=== PATIENT | female | born 2000 | race American Indian/Alaskan Native ===

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

== ENCOUNTER 2021-05-09 14:49 | Emergency (ER) | payer MEDICAID ==
[2021-05-09] MEDS ORDERED: LORazepam 1 MG TAB PO PRN (15:42)
--- NOTE | 2021-05-09 15:48 | Emergency Department Report ---
HPI - General Chief Complaint: Psych Time Seen by Provider: 05/09/21 15:35 - HPI HPI: Room 16 the patient is a 20-year-old female present with a chief complaint of anxiety. When the patient is asked why she came to the emergency department she replies "because I worry." The patient states "I just want to make sure I was okay." Patient is very vague and does not give any specific symptoms. Patient denies suicidal or homicidal ideation. Patient denies auditory or visual hallucination ED Past Medical Hx - Past Medical History Previous Medical History?: Yes - Family History Family history: no significant - Social History Smoking Status: Current Some Day Smoker (Occasional) Substance Use Type: None (Denies illicit drug use) - Medications Home Medications: Home Medications Medication Instructions Recorded Confirmed Last Taken Type cephALEXin [Keflex] 500 mg PO TID #10 capsule 12/08/16 Unknown Rx ED Review of Systems ROS: Stated complaint: MH EVAL Other details as noted in HPI Constitutional: no symptoms reported Eyes: denies: eye pain ENT: denies: throat pain Respiratory: no symptoms reported Cardiovascular: denies: chest pain Endocrine: no symptoms reported Gastrointestinal: denies: abdominal pain Genitourinary: denies: dysuria Musculoskeletal: denies: back pain Neurological: denies: headache Psychiatric: anxiety. denies: auditory hallucinations, visual hallucinations, homicidal thoughts, suicidal thoughts Physical Exam - Physical Exam Physical Exam: GENERAL: The patient is well-developed well-nourished female walking in hallway not appearing to be in acute distress. [] HEENT: Normocephalic. Atraumatic. Extraocular motions are intact. Patient has moist mucous membranes. NECK: Supple. Trachea midline CHEST/LUNGS: Clear to auscultation. There is no respiratory distress noted. HEART/CARDIOVASCULAR: Regular. There is no tachycardia. There is no gallop rub or murmur. ABDOMEN: Abdomen is soft, nontender. Patient has normal bowel sounds. There is no abdominal distention. SKIN: There is no rash. There is no edema. There is no diaphoresis. NEURO: The patient is awake, alert, and oriented. The patient is cooperative. The patient has no focal neurologic deficits. The patient has normal speech and gait. GCS 15 MUSCULOSKELETAL: There is no evidence of acute injury. ED Medical Decision Making - Lab Data Result diagrams: 05/09/21 15:47 05/09/21 15:47 - Differential Diagnosis Anxiety, adjustment disorder Critical care attestation.: If time is entered above; I have spent that time in minutes in the direct care of this critically ill patient, excluding procedure time. ED Disposition Clinical Impression: Psychosis Disposition: [id number]/TX-65 PSY HOSP/PSY UNIT Is pt being admited?: No Does the pt Need Aspirin: No Condition: Stable Referrals: PRIMARY CARE, [Primary Care Provider] - 3-5 Days
[2021-05-09 16:10] LABS: Bacteria,Urine 1+ /HPF (Negative); Bilirubin,Urine SM (Negative); Blood,Urine MOD (Negative); Color,Urine Amber (Yellow); Hyaline Casts,Urine 2 /LPF; Mucus,Urine 3+ /HPF
[2021-05-09 16:11] LABS: Amphetamine Screen,Urine Negative; Benzodiazepines Screen,Urine Negative; Cocaine Screen,Urine Negative; Methadone Screen,Urine Negative; Opiate Screen,Urine Negative
[2021-05-09 16:14] LABS: Basophils # (Auto) 0.1 K/mm3 (0.0-0.1); Basophils % (Auto) 0.7 % (0.0-1.8); Eosinophils # (Auto) 0.1 K/mm3 (0.0-0.4); Eosinophils % (Auto) 0.9 % (0.0-4.3); Hematocrit 39.5 % (30.3-42.9); Hemoglobin 13.3 gm/dl (10.1-14.3); Lymphocytes % (Auto) 20.6 % (13.4-35.0); Mean Corpuscular HGB Conc 34 % (30-34); Mean Corpuscular Volume 88 fl (79-97); Monocytes # (Auto) 0.7 K/mm3 (0.0-0.8); Monocytes % (Auto) 6.9 % (0.0-7.3); Platelet Count 487 K/mm3 (140-440); Red Blood Count 4.51 M/mm3 (3.65-5.03); Red Cell Distribution Width 14.4 % (13.2-15.2)
[2021-05-09 16:24] LABS: Blood Urea Nitrogen 8 mg/dL (7-17); Calcium 10.1 mg/dL (8.4-10.2); Hemolysis Index 5
[2021-05-09 16:25] LABS: BUN/Creatinine Ratio 11
[2021-05-09 16:36] LABS: Cannabinoid Screen,Urine PRESUMPTIVE POSITIVE
[2021-05-09 16:39] LABS: Free T4 (Free Thyroxine) 1.23 ng/dL (0.76-1.46)
[2021-05-09 16:47] LABS: Ictotest,Urine Negative (Negative)
[2021-05-09] MEDS ORDERED: HALOPERIDOL LACTATE 5 MG/1 ML INJ IM PRN (17:12)
[2021-05-09] MEDS: diphenhydrAMINE 50 MG/ML VIAL IM PRN (17:20)
--- NOTE | 2021-05-10 00:34 | Event Note ---
Date: 05/10/21 Patient's urine is consistent with urinary tract infection. I have ordered Keflex 500 mg twice daily x5 days.
[2021-05-10] MEDS: diphenhydrAMINE 50 MG/ML VIAL IM PRN (00:46)
[2021-05-10] MEDS ORDERED: cephALEXin 500 MG CAP PO SCH (01:00)
[2021-05-10 08:43] VITALS: BP 121/79
== END 2021-05-10 08:43 ==
LOC: ED 14:49
DX: F29 Unspecified psychosis not due to a substance or known physiological condition (principal); F17.200 Nicotine dependence, unspecified, uncomplicated; Z79.899 Other long term (current) drug therapy
CPT/HCPCS: 36415; 80048; 80307; 81001; 84439; 84443; 85025; 87076; 87086; 87186; 96372; 99285; J1200; J1630; 80320; G0480

== ENCOUNTER 2021-07-12 18:09 | Emergency (ER) | payer MEDICAID ==
[2021-07-12] MEDS ORDERED: ZIPRASIDONE 20 MG CAP PO ONE (19:06)
--- NOTE | 2021-07-12 19:06 | Emergency Department Report ---
ED Psych HPI - General Stated Complaint: SCHIZAFFECTIVE NEED MEDS Time Seen by Provider: 07/12/21 19:02 - History of Present Illness Initial Comments: Patient presents requesting psychiatric medications. She has a history of schizoaffective disorder, bipolar disorder, and insomnia. She states that she has not been on medications in quite some time. When she had been discharge from the hospital last, she was taken to detention. She states that that was sometime in late April or May and she has not been on medication since then. She had previously been on Abilify, Risperdal, and trazodone. Those were not working for her. She states that she just wants to feel better. She is not suicidal or homicidal. She is not delusional. She states that she does not believe people are after her. She is not hearing voices or seeing things. Patient states that she does not want to get to the point she needs psychiatric admission and was hoping that we could provide some medications for her to stabilize her. She states that she was to follow-up as an outpatient and is willing to do so. - Related Data Previous Rx's Medication Instructions Recorded Last Taken Type cephALEXin [Keflex] 500 mg PO TID #10 capsule 12/08/16 Unknown Rx Ziprasidone [Geodon] 20 mg PO BID #60 capsule 07/12/21 Unknown Rx hydrOXYzine PAMOATE [Vistaril] 25 mg PO HS PRN #30 capsule 07/12/21 Unknown Rx Allergies Allergy/AdvReac Type Severity Reaction Status Date / Time No Known Allergies Allergy Verified 05/10/21 00:31 ED Review of Systems ROS: Stated complaint: SCHIZAFFECTIVE NEED MEDS Other details as noted in HPI Comment: All other systems reviewed and negative Constitutional: denies: fever Eyes: denies: eye pain ENT: denies: throat pain Respiratory: denies: cough Cardiovascular: denies: chest pain Endocrine: denies: unexplained weight loss Gastrointestinal: denies: abdominal pain Genitourinary: denies: dysuria Musculoskeletal: denies: back pain Skin: denies: rash Neurological: denies: headache Psychiatric: as per HPI Hematological/Lymphatic: denies: easy bruising ED Past Medical Hx - Past Medical History Hx Hypertension: No Hx Diabetes: No Hx Deep Vein Thrombosis: No Hx Renal Disease: No Hx Sickle Cell Disease: No Hx Seizures: No Hx Asthma: No Hx HIV: No - Family History Family history: hypertension - Social History Smoking Status: Current Some Day Smoker (Occasional) Substance Use Type: None (Denies illicit drug use) - Medications Home Medications: Home Medications Medication Instructions Recorded Confirmed Last Taken Type cephALEXin [Keflex] 500 mg PO TID #10 capsule 12/08/16 Unknown Rx Ziprasidone [Geodon] 20 mg PO BID #60 capsule 07/12/21 Unknown Rx hydrOXYzine PAMOATE [Vistaril] 25 mg PO HS PRN #30 capsule 07/12/21 Unknown Rx ED Physical Exam - General Limitations: No Limitations, Other (Pulse ox was noted and normal. She is not hypoxic.) General appearance: alert, in no apparent distress - Head Head exam: Present: atraumatic, normocephalic, normal inspection - Eye Eye exam: Present: normal appearance, EOMI. Absent: scleral icterus - ENT ENT exam: Present: normal exam, normal external ear exam - Neck Neck exam: Present: normal inspection. Absent: meningismus - Respiratory Respiratory exam: Present: normal lung sounds bilaterally. Absent: respiratory distress - Cardiovascular Cardiovascular Exam: Present: regular rate, normal rhythm - GI/Abdominal GI/Abdominal exam: Absent: tenderness - Extremities Exam Extremities exam: Present: normal capillary refill - Back Exam Back exam: Absent: CVA tenderness (R), CVA tenderness (L) - Neurological Exam Neurological exam: Present: alert, oriented X3, CN II-XII intact, normal gait. Absent: motor sensory deficit - Psychiatric Psychiatric exam: Present: normal affect, normal mood - Skin Skin exam: Present: warm, dry ED Course Vital Signs 07/12/21 18:54 Temperature 98.5 F Pulse Rate 70 Respiratory 16 Rate Blood Pressure 114/67 O2 Sat by Pulse 100 Oximetry - Reevaluation(s) Reevaluation #1: 07/12/21 19:11 Patient was seen in discharge. ED Medical Decision Making - Medical Decision Making Patient presents requesting medications. She is not suicidal. She is not homicidal. There is no evidence of acute psychosis. She is not responding to extraneous stimuli. She does not appear to be delusional. She has unremarkable vital signs and has no fever. I do not believe this represents any type of metabolic derangement. She is willing to contract for safety. We have provided resources for outpatient evaluation and follow-up. She has been provided medication to bridge the gap until she can get seen. She is comfortable with this plan and is willing to come back if she has problems. Critical Care Time: No Critical care attestation.: If time is entered above; I have spent that time in minutes in the direct care of this critically ill patient, excluding procedure time. ED Disposition Clinical Impression: Depression Qualifiers: Depression Type: unspecified Qualified Code(s): F32.9 - Major depressive disorder, single episode, unspecified Insomnia Qualifiers: Insomnia type: unspecified Qualified Code(s): G47.00 - Insomnia, unspecified Disposition: HOME / SELF CARE / HOMELESS Is pt being admited?: No Does the pt Need Aspirin: No Condition: Stable Instructions: Coping With Depression, Teen, Major Depressive Disorder, Adult, Insomnia Additional Instructions: Avoid caffeine. Drink plenty water. Return for problems. Follow-up with behavioral health and with counseling. Prescriptions: Ziprasidone [Geodon] 20 mg PO BID #60 capsule hydrOXYzine PAMOATE [Vistaril] 25 mg PO HS PRN #30 capsule PRN Reason: Sleep Referrals: PRIMARY CAREMD [Referring] - 3-5 Days JESSICA REED MD [Staff Physician] - 3-5 Days
[2021-07-12 19:40] VITALS: BP 126/82
== END 2021-07-12 20:36 | disposition home or self-care (01) ==
LOC: ED 18:09
DX: F32.9 Major depressive disorder, single episode, unspecified (principal); G47.00 Insomnia, unspecified; F17.200 Nicotine dependence, unspecified, uncomplicated
CPT/HCPCS: 99282

== ENCOUNTER 2021-08-20 17:30 | Emergency (ER) | payer MEDICAID ==
--- NOTE | 2021-08-20 19:01 | Emergency Department Report ---
HPI - General Chief Complaint: Urogenital-Female Time Seen by Provider: 08/20/21 18:03 - HPI HPI: MSE 5 The patient is a 21-year-old female present with chief complaint of medication refill and dysuria. Patient states she ran out of her Geodon and has been experiencing dysuria for 1 week. Patient denies hematuria but admits to white vaginal discharge for 1 week. Patient denies history of fever. Patient denies suicidal or homicidal ideation ED Past Medical Hx - Past Medical History Hx Psychiatric Treatment: Yes (schizo affective) - Surgical History Past Surgical History?: No - Family History Family history: no significant - Social History Smoking Status: Current Every Day Smoker (1/2 pack/day) Substance Use Type: None (Denies illicit drug use) - Medications Home Medications: Home Medications Medication Instructions Recorded Confirmed Last Taken Type cephALEXin [Keflex] 500 mg PO TID #10 capsule 12/08/16 Unknown Rx hydrOXYzine PAMOATE [Vistaril] 25 mg PO HS PRN #30 capsule 07/12/21 Unknown Rx Sulfamethoxazole/Trimethoprim 1 each PO BID #20 tablet 08/20/21 Unknown Rx [Bactrim DS TAB] Ziprasidone [Geodon] 20 mg PO BID #60 capsule 08/20/21 Unknown Rx ED Review of Systems ROS: Stated complaint: MENTAL HEALTH Other details as noted in HPI Constitutional: denies: fever Eyes: denies: eye pain ENT: denies: throat pain Respiratory: no symptoms reported Cardiovascular: denies: chest pain Endocrine: no symptoms reported Gastrointestinal: denies: abdominal pain Genitourinary: dysuria, discharge. denies: hematuria Musculoskeletal: denies: back pain Neurological: denies: headache Physical Exam - Physical Exam Vital Signs: Vital Signs 08/20/21 17:47 Temperature 97.5 F L Pulse Rate 87 Respiratory 14 Rate Blood Pressure 114/71 O2 Sat by Pulse 98 Oximetry Physical Exam: GENERAL: The patient is well-developed well-nourished female sitting in chair not appearing to be in acute distress. [] HEENT: Normocephalic. Atraumatic. Extraocular motions are intact. Patient has moist mucous membranes. NECK: Supple. Trachea midline CHEST/LUNGS: Clear to auscultation. There is no respiratory distress noted. HEART/CARDIOVASCULAR: Regular. There is no tachycardia. There is no gallop rub or murmur. ABDOMEN: Abdomen is soft, nontender. Patient has normal bowel sounds. There is no abdominal distention. SKIN: There is no rash. There is no edema. There is no diaphoresis. NEURO: The patient is awake, alert, and oriented. The patient is cooperative. The patient has no focal neurologic deficits. The patient has normal speech. GCS 15 MUSCULOSKELETAL: There is no evidence of acute injury. PELVIC: Scant white discharge present. ED Course Vital Signs 08/20/21 17:47 Temperature 97.5 F L Pulse Rate 87 Respiratory 14 Rate Blood Pressure 114/71 O2 Sat by Pulse 98 Oximetry ED Medical Decision Making - Lab Data Laboratory Tests 08/20/21 19:29 Urine Color Adelita Urine Turbidity Cloudy Urine pH 5.0 Ur Specific [place] 1.034 H Urine Protein 100 mg/dl Urine Glucose (UA) Neg Urine Ketones Neg Urine Blood Neg Urine Nitrite Neg Urine Bilirubin Sm Urine Ictotest Negative Urine Urobilinogen 4.0 Ur Leukocyte Esterase Mod Urine WBC (Auto) 101.0 H Urine RBC (Auto) 13.0 U Epithel Cells (Auto) 65.0 H Calcium Oxalate Crystal 2+ Urine Mucus 3+ Urine HCG, Qual Negative Wet prep-no trichomonas, clue cells or yeast - Differential Diagnosis UTI, bacterial vaginosis, urethritis, Critical care attestation.: If time is entered above; I have spent that time in minutes in the direct care of this critically ill patient, excluding procedure time. ED Disposition Clinical Impression: UTI (urinary tract infection), Dysuria Disposition: HOME / SELF CARE / HOMELESS Is pt being admited?: No Does the pt Need Aspirin: No Condition: Stable Instructions: Urinary Tract Infection, Adult, [id number] Additional Instructions: Return to the emergency department should you develop worsening symptoms, inab ility to tolerate food or liquids, high fever or any other concerns Prescriptions: Sulfamethoxazole/Trimethoprim [Bactrim DS TAB] 1 each PO BID #20 tablet Ziprasidone [Geodon] 20 mg PO BID #60 capsule Referrals: MARSHA SALEH MD [Primary Care Provider] - 3-5 Days [facility] [Outside] - 3-5 Days Time of Disposition: 22:57
[2021-08-20 20:03] LABS: Bilirubin,Urine SM (Negative); Blood,Urine NEG (Negative); Calcium Oxalate Crystals,Urine 2+; Color,Urine Amber (Yellow); Mucus,Urine 3+ /HPF
[2021-08-20 20:05] LABS: HCG Qualitative,Urine Negative (Negative)
[2021-08-20 20:09] LABS: Ictotest,Urine Negative (Negative)
[2021-08-20] MEDS ORDERED: LIDOCAINE-MPF (1%) 10 MG/1 ML VIAL 5 ML INFILTRATI ONE (20:58)
[2021-08-20] MEDS ORDERED: AZITHROMYCIN 1 GM ORAL PWDR PACKET PO ONE (20:59)
[2021-08-20 21:54] VITALS: BP 132/78
== END 2021-08-20 23:30 | disposition home or self-care (01) ==
LOC: ED 17:30
DX: N39.0 Urinary tract infection, site not specified (principal); R30.0 Dysuria; F17.200 Nicotine dependence, unspecified, uncomplicated
CPT/HCPCS: 81001; 81025; 87210; 87591; 96372; 99284; J0696

== ENCOUNTER 2022-03-27 08:32 | Emergency (ER) | payer MEDICAID ==
--- NOTE | 2022-03-27 08:52 | Emergency Department Report ---
ED General Adult HPI - General Chief complaint: Psych Stated complaint: what? Time Seen by Provider: 03/27/22 08:43 Source: patient, EMS ( EMS documentation not available at time of chart dictation ), RN notes reviewed, old records reviewed Limitations: Other (Psychosis) - History of Present Illness Initial comments: The patient was evaluated in the emergency department for symptoms described in the history of present illness. He/she was evaluated in the context of the global COVID-19 pandemic, which necessitated consideration that the patient might be at risk for infection with the virus that causes COVID-19. Institutional protocols and algorithms that pertain to the evaluation of patients at risk for COVID-19 are in a state of rapid change based on information released by regulatory bodies including the CDC and federal and state organizations. These policies and algorithms were followed during the patient's care in the emergency department. Please note that these policies, procedures and recommendations changed on a rapid basis. The patient is a 21-year-old female with a past medical history of psychiatric disease/schizoaffective disorder, who is reportedly brought to the hospital by emergency medical services with an EMS articulated complaint of change in mental status. The patient herself is awake and acutely psychotic. She does not answer open ended questions or close ended questions. She is not accompanied by friends or family at this time for collateral information or additional information. As per report from nursing team, friend called [phone] because the patient is reportedly experiencing a change in mental status. The patient's last known well time is not known. No further information is available. -: unknown - Related Data Previous Rx's Medication Instructions Recorded Last Taken Type cephALEXin [Keflex] 500 mg PO TID #10 capsule 12/08/16 Unknown Rx hydrOXYzine PAMOATE [Vistaril] 25 mg PO HS PRN #30 capsule 07/12/21 Unknown Rx Sulfamethoxazole/Trimethoprim 1 each PO BID #20 tablet 08/20/21 Unknown Rx [Bactrim DS TAB] Ziprasidone [Geodon] 20 mg PO BID #60 capsule 08/20/21 Unknown Rx Allergies Allergy/AdvReac Type Severity Reaction Status Date / Time No Known Allergies Allergy Verified 05/10/21 00:31 ED Review of Systems ROS: Stated complaint: AMS Other details as noted in HPI Comment: Unobtainable due to pts medical conditions ED Past Medical Hx - Past Medical History Hx Hypertension: No Hx Diabetes: No Hx Deep Vein Thrombosis: No Hx Renal Disease: No Hx Sickle Cell Disease: No Hx Seizures: No Hx Psychiatric Treatment: Yes (schizo affective) Hx Asthma: No Hx HIV: No - Social History Smoking Status: Current Every Day Smoker (1/2 pack/day) Substance Use Type: None (Denies illicit drug use) - Medications Home Medications: Home Medications Medication Instructions Recorded Confirmed Last Taken Type cephALEXin [Keflex] 500 mg PO TID #10 capsule 12/08/16 Unknown Rx hydrOXYzine PAMOATE [Vistaril] 25 mg PO HS PRN #30 capsule 07/12/21 Unknown Rx Sulfamethoxazole/Trimethoprim 1 each PO BID #20 tablet 08/20/21 Unknown Rx [Bactrim DS TAB] Ziprasidone [Geodon] 20 mg PO BID #60 capsule 08/20/21 Unknown Rx ED Physical Exam - General Limitations: Other (Psychosis and disorganized behavior) General appearance: anxious, obese - Head Head exam: Present: atraumatic, normocephalic - Eye Eye exam: Present: normal appearance, EOMI - ENT ENT exam: Present: normal exam, normal orophraynx, mucous membranes moist, normal external ear exam - Neck Neck exam: Present: normal inspection, full ROM. Absent: tenderness, meningismus - Respiratory Respiratory exam: Present: normal lung sounds bilaterally. Absent: respiratory distress, wheezes, rales, rhonchi, stridor, decreased breath sounds - Cardiovascular Cardiovascular Exam: Present: regular rate, normal rhythm, normal heart sounds. Absent: bradycardia, tachycardia, irregular rhythm, systolic murmur, diastolic murmur, rubs, gallop - GI/Abdominal GI/Abdominal exam: Present: soft. Absent: distended, tenderness, guarding, rebound, rigid, pulsatile mass - Extremities Exam Extremities exam: Present: normal inspection, full ROM, other (2+ pulses noted in the bilateral upper and lower extremities. There is no palpable cord. negative Homans sign. Muscular compartments are soft. The pelvis is stable.). Absent: pedal edema, calf tenderness - Back Exam Back exam: Present: normal inspection. Absent: tenderness, CVA tenderness (R), CVA tenderness (L), paraspinal tenderness, vertebral tenderness - Neurological Exam Neurological exam: Present: altered, other (There is no facial droop. The tongue is midline. 5 out of 5 strength in 4 extremities.) - Psychiatric Psychiatric exam: Present: agitated, anxious - Skin Skin exam: Present: warm, dry, intact, normal color. Absent: rash ED Course Vital Signs 03/27/22 08:35 Temperature 98 F Pulse Rate 88 Blood Pressure 140/90 [Left] O2 Sat by Pulse 99 Oximetry - Reevaluation(s) Reevaluation #1: 03/27/22 09:46 Differential diagnosis, include not limited to: Psychosis, electrolyte derangement, thyroid derangement, encounter for medical screening examination, medical screening for psychiatric placement Assessment and plan: 21-year-old female, likely presenting with acute decompensated psychosis. Patient placed on 1013. Appropriate laboratory studies ordered. Obtain noncontrast CT scan of the brain. Patient uncooperative, but does not exhibit decision-making capacity. She will therefore be medicated with haloperidol and Ativan, to allow for acquisition of time sensitive diagnostics. Psychiatric consultation is requested. 03/27/22 11:42 Laboratory studies are essentially unremarkable for emergent findings. Urinalysis, drug screen and COVID swab pending. CT scan of the brain appears to be negative for acute findings. The emergency room follow along as the patient provides urinalysis, drug screen and COVID. These diagnostics are not nece ssary to exclude emergent medical conditions, and at this point in time, this patient does not appear to have an immediate medical contraindication to psychiatric admission, evaluation, consultation and placement. Awaiting psychiatric recommendations. ED Medical Decision Making - Lab Data Result diagrams: 03/27/22 10:28 03/27/22 10:28 Vital Signs 03/27/22 08:35 Temperature 98 F Pulse Rate 88 Blood Pressure 140/90 [Left] O2 Sat by Pulse 99 Oximetry Lab Results 03/27/22 03/27/22 03/27/22 Range/Units 10:28 10:28 10:28 WBC 9.9 (4.5-11.0) K/mm3 RBC 5.18 H (3.65-5.03) M/mm3 Hgb 14.2 (10.1-14.3) gm/dl Hct 43.6 H (30.3-42.9) % MCV 84 (79-97) fl MCH 27 L (28-32) pg MCHC 33 (30-34) % RDW 14.4 (13.2-15.2) % Plt Count 611 H (140-440) K/mm3 Sodium (137-145) mmol/L Potassium (3.6-5.0) mmol/L Chloride (98-107) mmol/L Carbon Dioxide (22-30) mmol/L Anion Gap mmol/L BUN (7-17) mg/dL Creatinine (0.6-1.2) mg/dL Estimated GFR ml/min BUN/Creatinine Ratio % Glucose (65-100) mg/dL Calcium (8.4-10.2) mg/dL Total Bilirubin (0.1-1.2) mg/dL AST (5-40) units/L ALT (7-56) units/L Alkaline Phosphatase (35-129) units/L Total Protein (6.3-8.2) g/dL Albumin (3.9-5) g/dL Albumin/Globulin Ratio % TSH (0.270-4.200) mlU/mL HCG, Qual (Negative) Salicylates < 0.3 L (2.8-20.0) mg/dL Acetaminophen 5.0 L (10.0-30.0) ug/mL Valproic Acid < 2.8 L (50-100) ug/mL Bern 0.1 (0.0-1.2) mmol/L Plasma/Serum Alcohol (0-0.07) % 03/27/22 03/27/22 03/27/22 Range/Units 10:28 10:28 10:28 WBC (4.5-11.0) K/mm3 RBC (3.65-5.03) M/mm3 Hgb (10.1-14.3) gm/dl Hct (30.3-42.9) % MCV (79-97) fl MCH (28-32) pg MCHC (30-34) % RDW (13.2-15.2) % Plt Count (140-440) K/mm3 Sodium 137 (137-145) mmol/L Potassium 3.6 (3.6-5.0) mmol/L Chloride 101.8 (98-107) mmol/L Carbon Dioxide 21 L (22-30) mmol/L Anion Gap 18 mmol/L BUN 15 (7-17) mg/dL Creatinine 1.2 (0.6-1.2) mg/dL Estimated GFR > 60 ml/min BUN/Creatinine Ratio 13 % Glucose 96 (65-100) mg/dL Calcium 9.9 (8.4-10.2) mg/dL Total Bilirubin 0.30 (0.1-1.2) mg/dL AST 16 (5-40) units/L ALT 15 (7-56) units/L Alkaline Phosphatase 79 (35-129) units/L Total Protein 8.9 H (6.3-8.2) g/dL Albumin 5.0 (3.9-5) g/dL Albumin/Globulin Ratio 1.3 % TSH 0.627 (0.270-4.200) mlU/mL HCG, Qual (Negative) Salicylates (2.8-20.0) mg/dL Acetaminophen (10.0-30.0) ug/mL Valproic Acid (50-100) ug/mL Bern (0.0-1.2) mmol/L Plasma/Serum Alcohol < 0.01 (0-0.07) % 03/27/22 Range/Units 10:28 WBC (4.5-11.0) K/mm3 RBC (3.65-5.03) M/mm3 Hgb (10.1-14.3) gm/dl Hct (30.3-42.9) % MCV (79-97) fl MCH (28-32) pg MCHC (30-34) % RDW (13.2-15.2) % Plt Count (140-440) K/mm3 Sodium (137-145) mmol/L Potassium (3.6-5.0) mmol/L Chloride (98-107) mmol/L Carbon Dioxide (22-30) mmol/L Anion Gap mmol/L BUN (7-17) mg/dL Creatinine (0.6-1.2) mg/dL Estimated GFR ml/min BUN/Creatinine Ratio % Glucose (65-100) mg/dL Calcium (8.4-10.2) mg/dL Total Bilirubin (0.1-1.2) mg/dL AST (5-40) units/L ALT (7-56) units/L Alkaline Phosphatase (35-129) units/L Total Protein (6.3-8.2) g/dL Albumin (3.9-5) g/dL Albumin/Globulin Ratio % TSH (0.270-4.200) mlU/mL HCG, Qual Negative (Negative) Salicylates (2.8-20.0) mg/dL Acetaminophen (10.0-30.0) ug/mL Valproic Acid (50-100) ug/mL Bern (0.0-1.2) mmol/L Plasma/Serum Alcohol (0-0.07) % - Radiology Data Radiology results: report reviewed, image reviewed CT HEAD WITHOUT CONTRAST INDICATION / CLINICAL INFORMATION: change in mental status psychosis. TECHNIQUE: All CT scans at this location are performed using CT dose reduction for ALARA by means of automated exposure control. COMPARISON: None available. FINDINGS: HEMORRHAGE: None. EXTRA-AXIAL SPACES: Normal in size and morphology for the patient's age. VENTRICULAR SYSTEM: Normal in size and morphology for the patient's age. CEREBRAL PARENCHYMA: No significant abnormality. No acute territorial infarct. MIDLINE SHIFT / HERNIATION: None. CEREBELLUM / BRAINSTEM: No significant abnormality. ORBITS: Normal as visualized SOFT TISSUES: No significant abnormality. SKULL: No significant abnormality. PARANASAL SINUSES / MASTOID AIR CELLS: Normal as visualized ADDITIONAL FINDINGS: None. IMPRESSION: 1. No acute intracranial abnormality. Signer Name: Alexei Brandon DO Signed: 03/27/2022 10:38 AM Workstation Name: [id number] Critical care attestation.: If time is entered above; I have spent that time in minutes in the direct care of this critically ill patient, excluding procedure time. ED Disposition Clinical Impression: Psychosis, Medical clearance for psychiatric admission Disposition: [address] [place] [address] Is pt being admited?: No Does the pt Need Aspirin: No Condition: Good
[2022-03-27] MEDS: HALOPERIDOL LACTATE 5 MG/1 ML INJ IM PRN (09:49)
[2022-03-27] MEDS: LORazepam 2 MG/ML VIAL IM PRN (09:49)
[2022-03-27 11:10] LABS: Hematocrit 43.6 % (30.3-42.9); Hemoglobin 14.2 gm/dl (10.1-14.3); Mean Corpuscular HGB Conc 33 % (30-34); Mean Corpuscular Volume 84 fl (79-97); Platelet Count 611 K/mm3 (140-440); Red Blood Count 5.18 M/mm3 (3.65-5.03); Red Cell Distribution Width 14.4 % (13.2-15.2)
[2022-03-27 11:24] LABS: Alanine Aminotransferase 15 units/L (7-56); BUN/Creatinine Ratio 13; Blood Urea Nitrogen 15 mg/dL (7-17); Calcium 9.9 mg/dL (8.4-10.2); Hemolysis Index 3
--- NOTE | 2022-03-27 11:43 | Cat Scan Report ---
CT HEAD WITHOUT CONTRAST INDICATION / CLINICAL INFORMATION: change in mental status psychosis. TECHNIQUE: All CT scans at this location are performed using CT dose reduction for ALARA by means of automated exposure control. COMPARISON: None available. FINDINGS: HEMORRHAGE: None. EXTRA-AXIAL SPACES: Normal in size and morphology for the patient's age. VENTRICULAR SYSTEM: Normal in size and morphology for the patient's age. CEREBRAL PARENCHYMA: No significant abnormality. No acute territorial infarct. MIDLINE SHIFT / HERNIATION: None. CEREBELLUM / BRAINSTEM: No significant abnormality. ORBITS: Normal as visualized SOFT TISSUES: No significant abnormality. SKULL: No significant abnormality. PARANASAL SINUSES / MASTOID AIR CELLS: Normal as visualized ADDITIONAL FINDINGS: None. IMPRESSION: 1. No acute intracranial abnormality. Signer Name: Alexei Brandon DO Signed: 03/27/2022 11:38 AM Workstation Name: [id number]
--- NOTE | 2022-03-27 15:16 | Consultation ---
History of Present Illness - Reason for Consult Consult date: 03/27/22 Reason for consult: MHE - History of Present Psychiatric Illness The patient is a 21yo female with history of Schizoaffective disorder who presents with what appears to be a manic episode with psychosis. She was very agitated, psychotic and disorganized requiring emergent IM Haldol and Lorazepam. She continues to be psychotic and disorganized but calmer. RECOMMENDATIONS DISPOSITION: Acute inpatient psychiatric hospitalization when medically stable LEGAL STATUS: 1013 FOLLOW-UP: Will follow Please contact with any questions and/or concerns. Medications and Allergies Allergies Allergy/AdvReac Type Severity Reaction Status Date / Time No Known Allergies Allergy Verified 05/10/21 00:31 Home Medications Medication Instructions Recorded Confirmed Last Taken Type cephALEXin [Keflex] 500 mg PO TID #10 capsule 12/08/16 Unknown Rx hydrOXYzine PAMOATE [Vistaril] 25 mg PO HS PRN #30 capsule 07/12/21 Unknown Rx Sulfamethoxazole/Trimethoprim 1 each PO BID #20 tablet 08/20/21 Unknown Rx [Bactrim DS TAB] Ziprasidone [Geodon] 20 mg PO BID #60 capsule 08/20/21 Unknown Rx Active Meds: Active Medications Haloperidol Lactate (Haloperidol Lactate 5 Mg/1 Ml Inj) 5 mg IM Q6HR PRN PRN Reason: Agitation Last Admin: 03/27/22 09:49 Dose: 5 mg Lorazepam (Lorazepam 2 Mg/Ml Vial) 2 mg IM Q4HR PRN PRN Reason: Agitation Last Admin: 03/27/22 09:49 Dose: 2 mg Mental Status Exam - Vital signs Last Vital Signs Temp 98 F 03/27/22 08:35 Pulse 88 03/27/22 08:35 Resp BP 140/90 03/27/22 08:35 Pulse Ox 99 03/27/22 08:35 Results Result Diagrams: 03/27/22 10:28 03/27/22 10:28 Abnormal lab results 03/27/22 03/27/22 03/27/22 Range/Units 10:28 10:28 10:28 RBC 5.18 H (3.65-5.03) M/mm3 Hct 43.6 H (30.3-42.9) % MCH 27 L (28-32) pg Plt Count 611 H (140-440) K/mm3 Carbon Dioxide (22-30) mmol/L Total Protein (6.3-8.2) g/dL Salicylates < 0.3 L (2.8-20.0) mg/dL Acetaminophen 5.0 L (10.0-30.0) ug/mL Valproic Acid < 2.8 L (50-100) ug/mL 03/27/22 Range/Units 10:28 RBC (3.65-5.03) M/mm3 Hct (30.3-42.9) % MCH (28-32) pg Plt Count (140-440) K/mm3 Carbon Dioxide 21 L (22-30) mmol/L Total Protein 8.9 H (6.3-8.2) g/dL Salicylates (2.8-20.0) mg/dL Acetaminophen (10.0-30.0) ug/mL Valproic Acid (50-100) ug/mL All other labs normal. Assessment and Plan - Psychiatric problem (1) Schizoaffective disorder Current Visit: Yes Status: Acute
[2022-03-27 20:06] LABS: Amphetamine Screen,Urine Negative; Benzodiazepines Screen,Urine Negative; Methadone Screen,Urine Negative; Opiate Screen,Urine Negative
[2022-03-27 20:07] LABS: Bacteria,Urine 4+ /HPF (Negative); Bilirubin,Urine NEG (Negative); Blood,Urine NEG (Negative); Color,Urine Yellow (Yellow); Hyaline Casts,Urine 2 /LPF; Mucus,Urine 2+ /HPF; Urobilinogen,Urine < 2.0 mg/dL (<2.0)
[2022-03-27 20:31] LABS: Cannabinoid Screen,Urine PRESUMPTIVE POSITIVE
[2022-03-27 21:00] LABS: Cocaine Screen,Urine PRESUMPTIVE NEGATIVE
[2022-03-27] MEDS ORDERED: ZOLPIDEM 5 MG TAB PO ONE (23:11)
[2022-03-28] MEDS ORDERED: NITROFURANTOIN MONOHYD/M-CRYST 100 MG CAP PO SCH (10:00)
[2022-03-28 10:02] VITALS: BP 134/86
--- NOTE | 2022-03-28 11:29 | Event Note ---
Date: 03/28/22 Patient is 21 years old female admitted to the emergency room with manic episode. Patient still with disorganized thoughts and hallucination. Vital signs stable. Labs reviewed and is unremarkable. Waiting for inpatient psychiatric admission.
[2022-03-28] MEDS: LORazepam 2 MG/ML VIAL IM PRN (15:16)
[2022-03-28] MEDS: HALOPERIDOL LACTATE 5 MG/1 ML INJ IM PRN (15:41)
== END 2022-03-28 18:00 ==
LOC: ED 08:32
DX: F25.9 Schizoaffective disorder, unspecified (principal); Z13.30 Encounter for screening examination for mental health and behavioral disorders, unspecified; Z20.822 Contact with and (suspected) exposure to COVID-19; F17.290 Nicotine dependence, other tobacco product, uncomplicated
CPT/HCPCS: 36415; 70450; 80053; 80164; 80178; 80307; 81001; 84443; 84703; 85027; 87086; 96372; 99285; J1630; J2060; U0003; 80320; G0480